=== PATIENT | female | born 1945 | race Two or more races ===

== ENCOUNTER → 2017-01-30 | Outpatient (CLI) | payer MEDICARE, BC ==
[~2017-01-30] MED LIST: ATOR40TA68 PO; BACL10TA PO; CELE200C PO; DULO60CA59 PO; GABA-526 PO; HYDR-902 PO; MELO-109 PO; TRAM-40 PO; [UNRECOGNIZED DRUG - CODE] PO
--- NOTE | 2017-01-31 18:47 | RADRPT ---
PROCEDURE: XR Chest. CLINICAL INDICATION: Preoperative. TECHNIQUE: Single frontal view. COMPARISON: None. FINDINGS: There is mild atelectasis at the lung bases. The lungs are otherwise clear. The heart size is normal. There is no pleural effusion. There is no pneumothorax. IMPRESSION: 1. Mild atelectasis at the lung bases. 2. Otherwise normal chest radiograph. RPTAT: QQ .Shayne Kothari MD, MD Date Time Electronically viewed and signed by .Shayne Kothari MD, on 01/31/2017 18:47 .R/
== END | disposition home or self-care (01) ==
LOC: RAD 17:24
PROVIDERS: ATTEND Internal Medicine
DX: Z01.818 Encounter for other preprocedural examination (principal); J98.11 Atelectasis
CPT/HCPCS: 71010

== ENCOUNTER 2017-02-11 14:22 | Day surgery (SDC) | payer MEDICARE, BC ==
[~2017-02-11] VITALS: Ht 154.9 cm; Wt 119.0 kg
[2017-02-11] VITALS (12 sets, daily range): BP systolic 129–154; BP diastolic 64–78; PULSE 58–68; RESP 15–20; Ht 154.9 cm; Wt 119.0 kg
[2017-02-11] MEDS ORDERED: [UNRECOGNIZED DRUG - CODE] PO (15:13)
[2017-02-11] MEDS ORDERED: CELE200C PO (15:14)
[2017-02-11] MEDS ORDERED: TRAM-40 PO (15:14)
[2017-02-11] MEDS ORDERED: DULO60CA59 PO (15:14)
[2017-02-11] MEDS ORDERED: GABA-526 PO (15:15)
[2017-02-11] MEDS ORDERED: MELO-109 PO (15:15)
[2017-02-11] MEDS ORDERED: ATOR40TA68 PO (15:15)
[2017-02-11] MEDS ORDERED: HYDR-902 PO (15:15)
[2017-02-11] MEDS ORDERED: BACL10TA PO (15:16)
[2017-02-11] MEDS ORDERED: LACTATED RINGER'S 1,000 ML IV* SCH (15:30)
[2017-02-11] MEDS ORDERED: BUPIVACAINE 0.5% (SDV) 30 ML INJ ONE (15:48)
[2017-02-11] MEDS ORDERED: LIDOCAINE 1% (STERILE-PAK) 30 ML INJ ONE (15:48)
--- NOTE | 2017-02-11 15:52 | HPN ---
Date/Time of Note Date/Time of Note DATE: 02/11/17 TIME: 15:52 Interval H&P Admission Note Pt. seen H&P reviewed: No system changes DARCIE MURPHY February 11, 2017 15:52
[2017-02-11] MEDS ORDERED: FENTAnyl 50 MCG/ML VIAL ONE (15:57)
[2017-02-11] MEDS ORDERED: MIDAZOLAM 1 MG/ML 2 ML INJ ONE (15:57)
[2017-02-11] MEDS ORDERED: CEFAZOLIN 1 GM INJ ONE (16:26)
[2017-02-11] MEDS ORDERED: METOPROLOL 5 MG INJ ONE (16:26)
[2017-02-11] MEDS ORDERED: hydrALAzine 20 MG INJ IV PRN (16:30)
[2017-02-11] MEDS ORDERED: MEPERIDINE 25 MG INJ IV PRN (16:30)
[2017-02-11] MEDS ORDERED: morphine (1 MG/ML) 10ML SYRINGE IV PRN ×2 (16:30)
[2017-02-11] MEDS ORDERED: LABETALOL HCL 20MG INJ IV PRN (16:30)
[2017-02-11] MEDS ORDERED: DIPHENHYDRAMINE 50 MG INJ IV PRN (16:30)
[2017-02-11] MEDS ORDERED: ONDANSETRON 4 MG INJ IV PRN (16:30)
[2017-02-11] MEDS ORDERED: FENTAnyl 50 MCG/ML VIAL IV PRN (16:30)
--- NOTE | 2017-02-11 17:02 | OPR ---
DATE OF OPERATION: 02/11/2017 SURGEON: Darcie Xiong MD. ANESTHESIA: Local plus MAC. PREOPERATIVE DIAGNOSIS: Right carpal tunnel syndrome. POSTOPERATIVE DIAGNOSIS: Right carpal tunnel syndrome. PROCEDURE: Right carpal tunnel release, open. OPERATIVE FINDINGS: Compression of median nerve at the carpal tunnel. INDICATION FOR PROCEDURE: This 71-year-old female with longstanding right carpal tunnel symptoms. She failed conservative management and elected to proceed with surgical intervention, understanding risks and benefits. DESCRIPTION OF PROCEDURE: The patient was seen in the preoperative area and all of her questions we re answered. Again, she gave informed consent, understands the risks and benefits. She was taken t o the operative suite and placed in supine position. Ancef 2 grams given and sedation was administe red by the anesthesia team. Six mL of a 50:50 mixture of 0.5% Marcaine and 1% lidocaine was injecte d at the surgical site. The right upper extremity was prepped with ChloraPrep stick and draped in u sual sterile fashion. Esmarch bandage was used to exsanguinate the extremity and tourniquet inflate d to 250 mmHg. A 2 cm incision at the base of the palm was utilized with sharp dissection carried d own through skin and subcutaneous tissue. The palmar aponeurosis was identified and was incised rosario ng its ulnar border. Retractors were deepened and the transverse carpal ligament was identified. T he ligament was divided along its ulnar border under direct visualization. A curved hemostat was us ed to spread distally and the transverse carpal ligament was divided under direct visualization katelin g its ulnar border. Attention was turned proximally and scissor dissection divided antebrachial fas ethel off the transverse carpal ligament. The ligament was divided under direct visualization along i ts ulnar border. Wound was copiously irrigated and skin closed with 3-0 nylon. Xeroform was placed to the wound followed by sterile gauze, Webril and a bias dressing. Tourniquet deflated after 12 m inutes and patient was awakened from anesthesia. She was taken the postoperative suite in stable co ndition and tolerated procedure well without complication. SPECIMENS: None. ESTIMATED BLOOD LOSS: 5 mL. COUNTS: Sponge, instrument, needle counts correct. TOURNIQUET TIME: 12 minutes. CONDITION ON DISCHARGE: Stable. Dictated By: DARCIE GUTIERREZ/NEFTALI Conf#: [id number] [facility]#: [id number]
[2017-02-11] MEDS ORDERED: HYDROCODONE/APAP (5/325) TAB PO PRN (18:00)
== END 2017-02-11 18:04 | disposition home or self-care (01) ==
LOC: SDS 14:22
PROVIDERS: ATTEND Orthopaedic Surgery Hand Surgery
DX: G56.01 Carpal tunnel syndrome, right upper limb (principal); E78.5 Hyperlipidemia, unspecified; E66.01 Morbid (severe) obesity due to excess calories; Z68.42 Body mass index [BMI] 45.0-49.9, adult
CPT/HCPCS: 64721; J0690; J2250; J3010